=== PATIENT | male | born 1980 | race Caucasian/White ===

== ENCOUNTER 2017-07-16 08:37 | Inpatient (IN) | payer OTHER ==
[~2017-07-16] VITALS: Ht 182.8 cm; Wt 76.8 kg
--- NOTE | 2017-07-16 09:25 | NUR ---
Time: 924 A 37 year old MALE admitted to under services of JOSE EDUARDO QUIJANO DO, Pt. arrived via [place] from [place]. Chief complaint: HERE FOR OPIATE WITHDRAWAL. LUCI HOANG
[2017-07-16 09:36] VITALS: BP 136/88
--- NOTE | 2017-07-16 11:02 | NUR ---
Spoke with America Landis CNP regarding order for librium, states she wanted it to be PRN.
[2017-07-16 11:03] LABS: BILIRUBIN NEGATIVE (NEGATIVE); BLOOD NEGATIVE (NEGATIVE); CLARITY CLEAR (CLEAR); COLOR YELLOW (YELLOW); GLUCOSE NEGATIVE (NEGATIVE); KETONE NEGATIVE (NEGATIVE); LEUKO ESTERASE NEGATIVE (NEGATIVE); NITRITE NEGATIVE (NEGATIVE); PH 6.5 (5.0-9.0)
[2017-07-16 11:03] LABS: BASO % 0.3 % (0.0-1.0); EOS # 0.1 10*3/uL (0.0-0.4); EOS % 1.2 % (1.0-4.0); HEMOGLOBIN 13.9 g/dl (14.0-18.0); LYMPH # 1.5 10*3/uL (1.3-4.4); LYMPH % 25.6 % (27.0-41.0); MEAN CELL VOLUME 89.9 fl (80.0-94.0); MEAN CORPUSCULAR HGB 30.5 pg (27.0-31.0); MEAN CORPUSCULAR HGB CONC 33.9 g/dl (33.0-37.0); MEAN PLATELET VOLUME 10.7 fl (9.6-12.3); MONO # 0.6 10*3/uL (0.1-1.0); MONO % 10.3 % (3.0-9.0); NEUT # 3.7 10*3/uL (2.3-7.9); NEUT % 62.3 % (47.0-73.0); PLATELET COUNT AUTOMATED 171 10*3/uL (130-400); RED BLOOD COUNT 4.56 10*6/uL (4.50-5.90); RED CELL DISTRI WIDTH 12.7 % (0-14.5); WHITE BLOOD COUNT 5.9 10*3/uL (4.8-10.8)
--- NOTE | 2017-07-16 11:07 | NUR ---
PRN medication given for urge to smoke, restless legs, muscle aches and anxiety. See emar.
[2017-07-16 11:11] LABS: URINE AMPHETAMINES < 1000 (1000ng/ml); URINE BARBITURATES < 200 (200ng/ml); URINE BENZODIAZEPINES < 200 (200ng/ml); URINE CANNABINOIDS (THC) < 50 (50ng/ml); URINE COCAINE > 300 (300ng/ml); URINE METHADONE < 300 (300ng/ml); URINE OPIATES > 300 (300ng/ml)
[2017-07-16 11:12] LABS: URINE PHENCYCLIDINE < 25 (25ng/ml)
[2017-07-16 11:18] LABS: ALBUMIN 3.3 gm/dl (3.1-4.5); ALKALINE PHOSPHATASE 65 U/L (45-117); BUN 12 mg/dl (7-24); CHLORIDE 107 mmol/L (98-107); CREATININE 0.96 mg/dL (0.70-1.30); LIPASE 121 U/L (73-393); POTASSIUM 4.2 mmol/L (3.5-5.1); SGOT/AST 25 IU/L (3-35); SGPT/ALT 38 U/L (12-78); SODIUM 141 mmol/L (136-145); TOTAL PROTEIN 7.2 gm/dL (6.4-8.2)
[2017-07-16 11:21] LABS: ETHYL ALCOHOL < 3.0 mg/dl (<3)
[2017-07-16 11:54] LABS: EPITHELIAL CELLS 0-2
[2017-07-16 12:00] VITALS: BP 130/80
--- NOTE | 2017-07-16 12:00 | NUR ---
Pt is resting, inquired regarding effectivness of Prn meds. Pt states he is feeling better, still having slight anxiety. Notified pt that librium is ordered if he needs it.
--- NOTE | 2017-07-16 14:13 | NUR ---
Pt is requesting librium. Given per prn order for conitinued anxiety.
[2017-07-16 16:00] VITALS: BP 124/56
[2017-07-16 20:00] VITALS: BP 125/75
[2017-07-17] VITALS: BP 114/74
--- NOTE | 2017-07-17 | NUR ---
PATIENT RESTING QUIETLY. DENIES NEED FOR ANY PRN MEDS.
[2017-07-17 04:00] VITALS: BP 120/83
--- NOTE | 2017-07-17 04:10 | NUR ---
PATIENT MEDICATED WITH VISTARIL, ROBAXIN AND REQUIP PER PRN ORDER FOR C/O ANXIETY,MUSCLE ACHINESS AND RESTLESS LEGS. SEE EMAR. REINFORCED USE OF CALL LIGHT.
[2017-07-17 07:49] VITALS: BP 117/66
--- NOTE | 2017-07-17 10:10 | NUR ---
MEDICATED WITH VISTARIL AND LIBRIUM FOR ANXIETY, ROBAXIN FOR MUSCLE CRAMPS, ALSO NICOTINE PATCH FOR SMOKING CRAVINGS.
--- NOTE | 2017-07-17 11:56 | NUR ---
PRN PO VISTARIL, LIBRIUM, AND ROBAXIN EFFECTIVE, PER PATIENT.
[2017-07-17 12:00] VITALS: BP 144/86
--- NOTE | 2017-07-17 14:29 | NUR ---
PT GIVEN LIBRIUM FOR C/O ANXIETY.
--- NOTE | 2017-07-17 14:33 | NUR ---
D/C PLANNING: HI STAFF HAS MADE NUMEROUS ATTEMPTS TO MAKE REFERRAL OPTIONS FOR PATIENT. PATIENT WANTS TO GO TO A SOBER LIVING FACILITY IN [place]. PATIENT IS STILL UNDECIDED AT THIS TIME. PATIENT STATED THAT HIS SPONSOR IS MAKING PHONE CALLS FOR HIM. HI STAFF OFFERED HER ASSISTANCE WITH PATIENT'S DISCHARGE PLANNING. PATIENT STATED THAT HE WILL FOLLOW-UP WITH HI STAFF ONCE HE MAKES HIS FINAL CHOICE ON HIS AFTERCARE PLAN. VINCE PALACIOS B.A. PHD INTERNSHIP
[2017-07-17 16:00] VITALS: BP 128/79
--- NOTE | 2017-07-17 17:08 | NUR ---
PER PATIENT, PO LIBRIUM EFFECTIVE FOR ANXIETY.
[2017-07-17 20:00] VITALS: BP 124/75
--- NOTE | 2017-07-17 22:48 | NUR ---
PATIENT MEDICATED WITH REQUIP,ROBAXIN AND TRAZODONE PER PRN ORDER FOR C/O RESTLESS LEGS, MUSCLE ACHINESS AND INABILITY TO SLEEP. SEE EMAR. REINFORCED USE OF CALL LIGHT.
[2017-07-18] VITALS: BP 127/77
--- NOTE | 2017-07-18 03:00 | NUR ---
Patient resting. Responding to scheduled medications with fewer complaints of pain and anxiety.
[2017-07-18 08:00] VITALS: BP 128/74
--- NOTE | 2017-07-18 09:14 | NUR ---
PT MEDICATED WITH PO VISTARIL & ROBAXIN FOR COMPLAINTS OF ANXIETY & MUSCLE ACHES. WILL MONITOR FOR EFFECTIVENESS.
--- NOTE | 2017-07-18 10:30 | NUR ---
PER PATIENT, MEDICATION HAS BEEN EFFECTIVE. NO FURTHER COMPLAINTS.
[2017-07-18 11:49] VITALS: BP 132/79
--- NOTE | 2017-07-18 13:47 | NUR ---
PT MEDICATED WITH REQUIP AT THIS TIME PER PRN ORDER FOR COMPLAINTS OF RESTLESS LEGS. WILL MONITOR.
--- NOTE | 2017-07-18 15:56 | NUR ---
Patient reports the following symptoms of withdrawal: ANXIETY Patient given scheduled/PRN medication to control withdrawal symptoms. Close observation will be maintained.
[2017-07-18 16:00] VITALS: BP 128/82
[2017-07-18 20:00] VITALS: BP 136/81
[2017-07-19] VITALS: BP 128/74
--- NOTE | 2017-07-19 02:21 | NUR ---
PATIENT RESTING IN BED. NO S/S OF DISTRESS. PATIENT HAS BEEN PLEASANT, VOICES NO COMPLAINTS.
--- NOTE | 2017-07-19 04:13 | NUR ---
24 HR chart check completed.
--- NOTE | 2017-07-19 07:57 | NUR ---
PATIENT REFUSED MORNING LABWORK. DR. GARVEY WAS NOTIFIED. SHE STATED SHE WOULD TALK TO HIM.
[2017-07-19 08:00] VITALS: BP 131/84
[2017-07-19] MEDS ORDERED: KEFLEX 500 MG E2 CAP PO (08:57)
[2017-07-19] MEDS ORDERED: ZOFRAN 4 MG ED2 TAB PO (08:57)
[2017-07-19] MEDS ORDERED: ATARAX,VISTARIL50 MG PO (08:57)
[2017-07-19] MEDS ORDERED: ROPINIROLE HYD0.5 MG PO (11:02)
--- NOTE | 2017-07-19 12:47 | NUR ---
PATIENT NOT IN ROOM, BELONGINGS NOT IN ROOM. HE LEFT WITHOUT TAKING PRINTED PRESCRIPTIONS OR RECEIVING HIS DISCHARGE INSTRUCTIONS. WAS AMBULATORY TO FRONT LOBBY.
--- NOTE | 2017-07-19 12:53 | NUR ---
PATIENT CALLED ON HIS CELLPHONE. PER PATIENT, HIS RIDE WAS HERE AND HE HAD TO LEAVE. HE MAY BE BACK IN A COUPLE OF DAYS TO GET THE PRESCRIPTIONS AND INSTRUCTIONS, PER PATIENT.
== END 2017-07-19 12:47 | disposition home or self-care (01) | DRG 897 ==
LOC: 4E 08:37
PROVIDERS: Registered Nurse; ADMIT Internal Medicine
DX: F11.23 Opioid dependence with withdrawal (principal); B19.20 Unspecified viral hepatitis C without hepatic coma; L03.113 Cellulitis of right upper limb; F14.10 Cocaine abuse, uncomplicated; Z71.6 Tobacco abuse counseling; F17.210 Nicotine dependence, cigarettes, uncomplicated

== ENCOUNTER 2020-01-19 15:57 | Inpatient (IN) | payer OTHER ==
[~2020-01-19] VITALS: Ht 182.9 cm; Wt 81.4 kg
[~2020-01-19 15:57] MED LIST: ATARAX,VISTARIL50 MG PO; KEFLEX 500 MG E2 CAP PO; ROPINIROLE HYD0.5 MG PO; ZOFRAN 4 MG ED2 TAB PO
[2020-01-19 16:50] VITALS: BP 111/94
[2020-01-19 17:51] LABS: BILIRUBIN 1+ (NEGATIVE); BLOOD NEGATIVE (NEGATIVE); CLARITY CLEAR (CLEAR); COLOR YELLOW (YELLOW); GLUCOSE NEGATIVE (NEGATIVE); KETONE NEGATIVE (NEGATIVE)
[2020-01-19 17:52] LABS: BACTERIA TRACE; LEUKO ESTERASE NEGATIVE (NEGATIVE); MUCOUS TRACE; NITRITE NEGATIVE (NEGATIVE); RBC 0-2 rbc/hpf (0-2); UROBILINOGEN 0.2 E.U./dl (0.2-1.0); WBC 0-2 wbc/hpf (0-5)
[2020-01-19 17:57] LABS: URINE AMPHETAMINES < 1000 (1000ng/ml); URINE BARBITURATES < 200 (200ng/ml); URINE BENZODIAZEPINES < 200 (200ng/ml); URINE CANNABINOIDS (THC) < 50 (50ng/ml); URINE COCAINE > 300 (300ng/ml); URINE METHADONE < 300 (300ng/ml); URINE OPIATES > 300 (300ng/ml)
[2020-01-19 18:05] LABS: BASO % 0.2 % (0.0-1.0); EOS # 0.1 10*3/uL (0.0-0.4); EOS % 0.7 % (1.0-4.0); HEMATOCRIT 41.9 % (42.0-52.0); LYMPH # 1.8 10*3/uL (1.3-4.4); LYMPH % 19.8 % (27.0-41.0); MEAN CELL VOLUME 91.1 fl (80.0-94.0); MEAN CORPUSCULAR HGB 31.1 pg (27.0-31.0); MEAN CORPUSCULAR HGB CONC 34.1 g/dl (33.0-37.0); MEAN PLATELET VOLUME 9.8 fl (9.6-12.3); MONO # 0.9 10*3/uL (0.1-1.0); NEUT # 6.3 10*3/uL (2.3-7.9); NEUT % 69.1 % (47.0-73.0); PLATELET COUNT AUTOMATED 211 10*3/uL (130-400); WHITE BLOOD COUNT 9.2 10*3/uL (4.8-10.8)
[2020-01-19 18:05] LABS: URINE PHENCYCLIDINE < 25 (25ng/ml)
[2020-01-19 18:20] LABS: ALBUMIN 3.5 gm/dl (3.1-4.5); ALKALINE PHOSPHATASE 73 U/L (45-117); BUN 15 mg/dl (7-24); CHLORIDE 107 mmol/L (98-107); CREATININE 1.06 mg/dL (0.70-1.30); POTASSIUM 4.2 mmol/L (3.5-5.1); SGOT/AST 44 IU/L (3-35); SGPT/ALT 53 U/L (12-78); SODIUM 140 mmol/L (136-145); TOTAL PROTEIN 7.3 gm/dL (6.4-8.2)
[2020-01-19 18:27] LABS: ETHYL ALCOHOL < 3.0 mg/dl (<3)
[2020-01-19 20:00] VITALS: BP 122/69
[2020-01-20] VITALS: BP 115/72
[2020-01-20 08:00] VITALS: BP 130/84
[2020-01-20 12:00] VITALS: BP 127/72
[2020-01-20 16:00] VITALS: BP 135/86
[2020-01-20 20:00] VITALS: BP 136/90
[2020-01-21] VITALS: BP 137/95
[2020-01-21 08:00] VITALS: BP 123/81
[2020-01-21 12:00] VITALS: BP 123/80
== END 2020-01-21 14:57 | disposition left against medical advice (07) | DRG 770 ==
LOC: 5E 15:57
PROVIDERS: Internal Medicine; ADMIT Internal Medicine
DX: F11.23 Opioid dependence with withdrawal (principal); F10.239 Alcohol dependence with withdrawal, unspecified; Y90.9 Presence of alcohol in blood, level not specified; F17.210 Nicotine dependence, cigarettes, uncomplicated; B19.20 Unspecified viral hepatitis C without hepatic coma; R73.9 Hyperglycemia, unspecified; Z53.29 Procedure and treatment not carried out because of patient's decision for other reasons; Z71.6 Tobacco abuse counseling